=== PATIENT | male | born 1955 | race Caucasian/White ===

== ENCOUNTER 2018-07-27 05:25 | Day surgery (SDC) | payer OTHER ==
[2018-07-27] MEDS ORDERED: DIPHENHYDRAMINE 50 MG CAP PO (07:00)
[2018-07-27] MEDS ORDERED: SOD CHLORIDE 0.45% 1,000 ML IV (07:00)
[2018-07-27] MEDS ORDERED: DIAZEPAM 5 MG TAB PO (07:00)
[2018-07-27] MEDS ORDERED: CEFAZOLIN 2 GM/50 ML (PMX) 50 ML IVPB (07:05)
[2018-07-27] MEDS ORDERED: POLYMYXIN/BACITRACIN 1L IRRIG (07:05)
[2018-07-27] MEDS ORDERED: FENTAnyl 50 MCG/ML VIAL ×2 (07:22→07:45)
[2018-07-27] MEDS ORDERED: LIDOCAINE 1% (MDV) 20 ML INJ (07:22)
[2018-07-27] MEDS ORDERED: MIDAZOLAM 1 MG/ML 2 ML INJ (07:22)
[2018-07-27] MEDS ORDERED: IOHEXOL 350MG/ML 50 ML BTL (07:26)
[2018-07-27] MEDS ORDERED: PROPOFOL 0 ML (07:45)
[2018-07-27] MEDS ORDERED: ONDANSETRON 4 MG INJ IV (08:00)
[2018-07-27] MEDS ORDERED: FENTAnyl 50 MCG/ML VIAL IV ×3 (08:00)
[2018-07-27] MEDS ORDERED: HYDROmorphONE 1 MG/5 ML IV SYRINGE IV ×3 (08:00)
[2018-07-27] MEDS ORDERED: LABETALOL HCL 20MG INJ IV (08:00)
[2018-07-27] MEDS ORDERED: OXYCODONE/ACETAMINOPHEN (5/325) TAB PO ×2 (08:00)
[2018-07-27] MEDS ORDERED: DIPHENHYDRAMINE 50 MG INJ IV (08:00)
[2018-07-27] MEDS ORDERED: MEPERIDINE 25 MG INJ IV (08:00)
[2018-07-27] MEDS ORDERED: hydrALAzine 20 MG INJ IV (08:00)
[2018-07-27] MEDS ORDERED: PROPOFOL 20 ML (09:01)
[2018-07-27] MEDS ORDERED: ASPIRIN (EC) 81 MG TAB PO (09:30)
[2018-07-27] MEDS ORDERED: ATORVASTATIN 80 MG TAB PO (21:00)
[2018-07-27] MEDS ORDERED: METOPROLOL 25 MG TAB PO (21:00)
[2018-07-28] MEDS ORDERED: LISINOPRIL 5 MG TAB PO (09:00)
== END 2018-07-27 13:01 | disposition home or self-care (01) ==
LOC: CCL 05:25 → SDS 05:25 → CCL 13:01
DX: I25.5 Ischemic cardiomyopathy (principal); I25.10 Atherosclerotic heart disease of native coronary artery without angina pectoris; I25.2 Old myocardial infarction; I10 Essential (primary) hypertension; Z79.82 Long term (current) use of aspirin
CPT/HCPCS: 33249; 71045